=== PATIENT | male | born 1970 | race Caucasian/White ===

== ENCOUNTER → 2020-03-29 13:09 | Outpatient (CLI) | payer OTHER ==
[~2020-03-29 13:09] MED LIST: IBUPROFEN400 MG PO; PEPCID AC20 MG PO
[2020-03-31 08:18] VITALS: BMI 25.8
== END | disposition home or self-care (01) ==
LOC: D.LABREF 13:09
PROVIDERS: ATTEND Surgery
DX: Z11.59 Encounter for screening for other viral diseases (principal)

== ENCOUNTER 2020-03-31 04:41 | Day surgery (SDC) | payer OTHER ==
[~2020-03-31] VITALS: Ht 180.3 cm; Wt 83.9 kg
[2020-03-31 05:22] LABS: BASOPHILS 0.3 % (0-2); EOSINOPHILS 1.9 % (0-7); HEMATOCRIT 40.4 % (42.0-54.0); HEMOGLOBIN 13.6 g/dL (13.5-17.5); IMMATURE GRANULOCYTES 0.1 % (0-5); LYMPHOCYTES 49.6 % (15-50); MCH 28.6 pg (26.0-34.0); MCHC 33.7 g/dL (31.0-37.0); MCV 85.1 fL (80.0-100.0); MONOCYTES 7.8 % (2-11); NEUTROPHILS 40.3 % (40-80); PLATELET COUNT 195 10x3/uL (130-400); RBC 4.75 10x6/uL (4.20-6.10)
[2020-03-31 05:45] LABS: CALC OSMOLALITY 278 mosm/kg (275-300); CALCIUM 8.2 mg/dL (8.5-10.1); CARBON DIOXIDE 28.7 mmol/L (21.0-32.0); CHLORIDE - SERUM 108 mmol/L (98-107); GLUCOSE 89 mg/dL (74-106); POTASSIUM - SERUM 3.4 mmol/L (3.5-5.1); SODIUM 141 mmol/L (136-145); UREA NITROGEN 10 mg/dL (7-18); eGFR NON AFRICAN AMERICAN 84 mL/min (90-120)
[2020-03-31] MEDS ORDERED: IBUPROFEN400 MG PO (08:13)
[2020-03-31] MEDS ORDERED: PEPCID AC20 MG PO (08:14)
[2020-03-31 08:18] VITALS: BP 148/79; Ht 180.3 cm; Wt 83.9 kg
--- NOTE | 2020-03-31 14:02 | NUR ---
SCOPE PATCH BEHIND RT EAR ON ADMIT
--- NOTE | 2020-03-31 16:08 | NUR ---
DC INSTRUCTIONS GIVEN TO PT. STATES UNDERSTANDING. PT HAS NOT VOIDED YET. WILL CONTINUE TO MONITOR.
--- NOTE | 2020-03-31 17:28 | NUR ---
1700 PT NAUSEATED. MEDICATED FOR NAUSEA IV ZOFRAN.
--- NOTE | 2020-03-31 18:43 | NUR ---
184 BLADDER SCAN PT 350 ML. PT DRINKING AND IV FLUIDS INFUSING
--- NOTE | 2020-03-31 19:47 | NUR ---
1900 IV REMOVED AND INSERTED CATHETER, PT UNABLE TO URINATE. 400ML OUT CLEAR YELLOW URINE
--- NOTE | 2020-03-31 19:47 | OP ---
PATIENT NAME: MARIZA ALLISON MEDICAL RECORD: [id number] :70 LOCATION:D[facility] ADMISSION DATE: SURGEON: CLARKE HAINES MD DATE OF OPERATION: 03/31/2020 PREOPERATIVE DIAGNOSIS: Symptomatic left inguinal hernia. POSTOPERATIVE DIAGNOSIS: Symptomatic left inguinal hernia. PROCEDURES: Open left indirect inguinal hernia repair with bi-layered preperitoneal polypropylene mesh. SURGEON: Clarke Haines MD MEDIA MARKETING DIRECTOR: Tressa Martinez, heat treatment technician. BLOOD LOSS: Minimal. ANESTHESIA: General. COMPLICATIONS: None. The risks, possible complications and alternatives to the procedure were explained to the patient. He elects to proceed. The discussion specifically included, but was not limited to, bleeding requiring emergency reoperation, infection, pseudo sac hematoma or seroma. OPERATIVE COURSE: The patient was conveyed the operating room electively on 03/31/2020. General anesthesia was induced by the anesthesia staff. The abdomen and genitals were sterilely prepped and draped. A transverse incision was accomplished in the left groin. Sharp dissection was carried down through skin and subcutaneous tissue as well as Mikey's fascia. The external oblique aponeurosis was then opened along the direction of its fibers. I dissected down through the internal oblique and transversus abdominis muscles. A preperitoneal pocket was fashioned bluntly. I reduced an indirect hernia in its entirety. There was no direct component. No femoral component. I then cut out 2 ovals of polypropylene mesh. The 2 ovals were then sutured together with a running #1 Surgidac. The mesh was placed in the preperitoneal space. I allowed the muscular layers to come together over the mesh. The internal oblique and transverse abdominis muscles were then sutured together incorporating a portion of the underlying mesh with multiple horizontal mattress 0 Surgidacs. The external oblique aponeurosis was closed with running #1 Vicryls. Mikey's fascia was approximated with interrupted 3-0 Vicryls. The subdermis was approximated with interrupted 3-0 Vicryls. The skin was approximated with a running intracuticular 3-0 Vicryl. Benzoin and Steri-Strips were applied. The patient was then extubated and conveyed to post-anesthesia care unit where he was in stable condition. TRANSINT:[id number] Voice Confirmation ID: [id number] DOCUMENT ID: [id number] OPERATIVE REPORT [id number] MARIZA ALLISON, CLARKE SNELL at 1947 CC: [place]YANNEUNNADEEN [id number] DICTATION DATE: 03/31/20 1437 CARPENTER WOODEN TANK ERECTING: 03/31/20 1459 REG [facility] [address] [id number]
== END 2020-03-31 19:25 ==
LOC: D.OPS 04:41
PROVIDERS: ATTEND Surgery
DX: K40.90 Unilateral inguinal hernia, without obstruction or gangrene, not specified as recurrent (principal)